=== PATIENT | male | born 1975 | race Caucasian/White ===

== ENCOUNTER 2022-09-21 10:46 | Outpatient (CLI) | payer BC | END 2022-09-21 10:47 | disposition home or self-care (01) | LOC: RAD 10:46 | PROVIDERS: ATTEND Physician Assistant Medical | DX: K75.81 Nonalcoholic steatohepatitis (NASH) (principal); R13.14 Dysphagia, pharyngoesophageal phase | CPT/HCPCS: 74220 ==